=== PATIENT | female | born 1970 | race Caucasian/White ===

== ENCOUNTER 2020-10-27 15:13 | Emergency (ER) | payer OTHER, SELFPAY ==
[~2020-10-27] VITALS: Ht 165.1 cm; Wt 98.9 kg
[2020-10-27 15:17] VITALS: BP 137/73
== END 2020-10-27 18:01 | disposition home or self-care (01) ==
LOC: ED 15:13
DX: U07.1 COVID-19 (principal); J12.89 Other viral pneumonia; J45.909 Unspecified asthma, uncomplicated